=== PATIENT | male | born 1965 | race Caucasian/White ===

== ENCOUNTER 2020-04-29 12:02 | Emergency (ER) | payer SELFPAY ==
[~2020-04-29] VITALS: Ht 188 cm; Wt 84.4 kg
--- NOTE | 2020-04-29 12:02 | NUR ---
PT BIB SELF C/O SI "I WANT TO CUT MY WRIST" PT IS AAOX4, NOT IN RESPIRATORY DISTRESS, V/S STABLE, KEPT RESTED AND COMFORTABLE. SITTER AT BEDSIDE. WILL CONTINUE TO MONITOR.
--- NOTE | 2020-04-29 12:13 | NUR ---
URINE SPECIMEN COLLECTED AND SENT TO LAB.
--- NOTE | 2020-04-29 12:16 | NUR ---
CALLED SECURITY FOR WANDING.
[2020-04-29 12:33] LABS: APPEARANCE,URINE Clear (CLEAR); BILIRUBIN,URINE Negative (NEGATIVE); BLOOD, URINE Negative Ery/uL (NEGATIVE); COLOR,URINE Yellow (YELLOW); KETONES,URINE Negative (NEGATIVE); LEUKOCYTE ESTERASE ,URINE Negative (NEGATIVE); NITRITE, URINE Negative (NEGATIVE); PROTEIN,URINE 30 mg/dl (NEGATIVE); UGLUCOSE Negative (NEGATIVE)
[2020-04-29 12:35] LABS: BASOPHILS # (AUTO) 0.1 /CMM (0.0-0.2); BASOPHILS % (AUTO) 0.9 % (0.0-2.0); EOSINOPHILS % (AUTO) 4.6 % (0.0-6.0); HEMATOCRIT 44 % (39-51); HEMOGLOBIN 14.8 g/dL (13.5-17.5); LYMPHOCYTES # (AUTO) 1.9 /CMM (0.8-4.8); LYMPHOCYTES % (AUTO) 32.6 % (20.0-44.0); MEAN CORPUSCULAR HGB CONC 34 g/dl (31.0-36.0); MEAN CORPUSCULAR VOLUME 100 fL (80-96); MONOCYTES # (AUTO) 0.6 /CMM (0.1-1.30); MONOCYTES % (AUTO) 10.2 % (2.0-12.0); NEUTROPHILS % (AUTO) 51.7 % (43.0-81.0); PLATELET COUNT (AUTO) 311 /CMM (150-450); WHITE BLOOD COUNT (AUTO) 5.7 K/uL (4.3-11.0)
[2020-04-29] MEDS ORDERED: LORAZEPAM 1 MG TABLET ONE (12:37)
[2020-04-29 12:40] LABS: CREATININE 1.1 mg/dL (0.6-1.3); POTASSIUM 3.5 mmol/L (3.5-5.1)
[2020-04-29 12:48] LABS: ALBUMIN 3.6 g/dL (3.4-5.0); BILIRUBIN,DIRECT 0.1 mg/dL (0.0-0.2); BILIRUBIN,TOTAL 0.4 mg/dL (0.2-1.0); TOTAL PROTEIN, SERUM 7.7 g/dL (6.4-8.2)
[2020-04-29 12:49] LABS: SALICYLATE 1.2 mg/dL (2.8-20.0)
[2020-04-29] MEDS ORDERED: LORAZEPAM 1 MG TABLET PO ONE (13:00)
--- NOTE | 2020-04-29 13:30 | NUR ---
Patient given written and verbal discharge instructions. Patient verbalizes understanding of instructions. Patient is ambulatory with steady gait. Refuses offer of penitentiary placement. Patient given list of available shelters in surrounding area.
[2020-04-29 13:31] VITALS: BP 126/81
== END 2020-04-29 13:32 | disposition home or self-care (01) ==
LOC: ER 12:02
DX: F41.9 Anxiety disorder, unspecified (principal); F32.9 Major depressive disorder, single episode, unspecified; F20.9 Schizophrenia, unspecified; F29 Unspecified psychosis not due to a substance or known physiological condition
CPT/HCPCS: 36415; 80048; 80076; 80305; 80307; 80329; 81001; 85025; 99283; G0480; 81000-TC

== ENCOUNTER 2020-04-29 23:20 | Emergency (ER) | payer SELFPAY ==
[~2020-04-29] VITALS: Ht 188 cm; Wt 84.4 kg
--- NOTE | 2020-04-29 23:34 | NUR ---
PT [id number] FROM [facility] PER RA, INGESTED ABOUT 15 PILLS LORAZEPAM 2MG. PT ENDORSES SI W/ A PLAN TO OVERDOSE ON PILLS. PT DENIES HI. PT AAOX4, VSS, RESPIRATIONS EVEN AND UNLABORED ON RA W/ NAD NOTED. PT CONNECTED TO THE MONITOR AND POX, CHANGED INTO GOWN BELONGINGS PLACED TO LOCKER. SUICIDE PRECAUTIONS IMPLEMENTED. SITTER AT BEDSIDE FOR SAFETY
--- NOTE | 2020-04-29 23:43 | NUR ---
EKG AT BEDSIDE
--- NOTE | 2020-04-29 23:48 | NUR ---
BUTTON RIVETER AT BEDSIDE
[2020-04-29 23:58] LABS: BASOPHILS # (AUTO) 0.1 /CMM (0.0-0.2); BASOPHILS % (AUTO) 1.4 % (0.0-2.0); EOSINOPHILS % (AUTO) 4.7 % (0.0-6.0); HEMATOCRIT 44 % (39-51); HEMOGLOBIN 14.9 g/dL (13.5-17.5); LYMPHOCYTES # (AUTO) 1.5 /CMM (0.8-4.8); LYMPHOCYTES % (AUTO) 27.8 % (20.0-44.0); MEAN CORPUSCULAR HGB CONC 34 g/dl (31.0-36.0); MEAN CORPUSCULAR VOLUME 99 fL (80-96); MONOCYTES # (AUTO) 0.5 /CMM (0.1-1.30); MONOCYTES % (AUTO) 9.9 % (2.0-12.0); NEUTROPHILS % (AUTO) 56.2 % (43.0-81.0); PLATELET COUNT (AUTO) 312 /CMM (150-450); RED BLOOD CELL COUNT(AUTO) 4.45 MIL/uL (4.5-6.0); WHITE BLOOD COUNT (AUTO) 5.4 K/uL (4.3-11.0)
[2020-04-30 00:13] LABS: CALCIUM, SERUM 8.1 mg/dL (8.5-10.1); CREATININE 1.1 mg/dL (0.6-1.3); POTASSIUM 3.4 mmol/L (3.5-5.1)
[2020-04-30] MEDS ORDERED: ONDANSETRON 4 MG TAB.RAPDIS ONE (00:28)
[2020-04-30] MEDS ORDERED: ONDANSETRON 4 MG TAB.RAPDIS SL ONE (00:30)
[2020-04-30 00:34] LABS: ALBUMIN 3.7 g/dL (3.4-5.0); BILIRUBIN,DIRECT 0.2 mg/dL (0.0-0.2); BILIRUBIN,TOTAL 0.5 mg/dL (0.2-1.0); TOTAL PROTEIN, SERUM 7.5 g/dL (6.4-8.2)
[2020-04-30 00:57] LABS: APPEARANCE,URINE CLEAR (CLEAR); BILIRUBIN,URINE NEGATIVE (NEGATIVE); BLOOD, URINE NEGATIVE Ery/uL (NEGATIVE); COLOR,URINE YELLOW (YELLOW); KETONES,URINE NEGATIVE (NEGATIVE); LEUKOCYTE ESTERASE ,URINE NEGATIVE (NEGATIVE); NITRITE, URINE NEGATIVE (NEGATIVE); PROTEIN,URINE TRACE mg/dl (NEGATIVE); UGLUCOSE NEGATIVE (NEGATIVE); UROBILINOGEN,URINE 0.2 EU/dL (0.2)
[2020-04-30 01:11] LABS: SALICYLATE 0.6 mg/dL (2.8-20.0)
[2020-04-30 01:18] LABS: BACTERIA,URINE None seen /HPF (None Seen); RBC,URINE 0-2 /HPF (0-2); SQUAMOUS EPITHELIAL CELL,UR Few /HPF (None Seen); WBC,URINE 0-2 /HPF (0-3)
--- NOTE | 2020-04-30 06:00 | NUR ---
BALDEMAR CRISIS TEAM MEDICAL ORDERLY AT BEDSIDE
--- NOTE | 2020-04-30 06:56 | NUR ---
Pt denies SI/HI. Patient discharged to home in stable condition. Written and verbal after care instructions given. Patient verbalizes understanding of instruction.
[2020-04-30 06:58] VITALS: BP 141/78
== END 2020-04-30 06:58 | disposition home or self-care (01) ==
LOC: ER 23:21
DX: T42.4X2A Poisoning by benzodiazepines, intentional self-harm, initial encounter (principal); R45.851 Suicidal ideations; F32.9 Major depressive disorder, single episode, unspecified; F20.9 Schizophrenia, unspecified; F41.9 Anxiety disorder, unspecified; R94.31 Abnormal electrocardiogram [ECG] [EKG]; Y92.89 Other specified places as the place of occurrence of the external cause
CPT/HCPCS: 36415; 80048; 80076; 80305; 80307; 80329; 81001; 82962; 85025; 93005; 99285; G0480; Q0162; 81000-TC

== ENCOUNTER 2020-05-30 16:17 | Emergency (ER) | payer MEDICAID ==
[~2020-05-30] VITALS: Ht 188 cm; Wt 85.3 kg
--- NOTE | 2020-05-30 16:20 | NUR ---
BIBRA 39 FOR NON RADIATING MIDSTERNAL CHEST PAIN STARTED AROUND 3PM TODAY. AA/OX4, BREATHING EVEN AND UNLABORED, NO SOB NOTED. ATTACHED TO THE [employer]OUSSEAU CONSULTANT.
[2020-05-30] MEDS ORDERED: PANTOPRAZOLE 40 MG VIAL IV ONE (16:30)
[2020-05-30] MEDS ORDERED: PANTOPRAZOLE 40 MG VIAL ONE (16:36)
--- NOTE | 2020-05-30 16:41 | NUR ---
IV LINE ESTABLISHED AND BLOOD DRAWN, GIVEN TO LAB. URINE SAMPLE SENT TO LAB.
[2020-05-30 16:44] LABS: BASOPHILS % (AUTO) 0.4 % (0.0-2.0); HEMATOCRIT 44 % (39-51); LYMPHOCYTES # (AUTO) 1.2 /CMM (0.8-4.8); LYMPHOCYTES % (AUTO) 25.2 % (20.0-44.0); MEAN CORPUSCULAR HGB CONC 34 g/dl (31.0-36.0); MEAN CORPUSCULAR VOLUME 102 fL (80-96); MONOCYTES # (AUTO) 0.5 /CMM (0.1-1.30); MONOCYTES % (AUTO) 9.7 % (2.0-12.0); NEUTROPHILS % (AUTO) 62.7 % (43.0-81.0); PLATELET COUNT (AUTO) 219 /CMM (150-450); RED BLOOD CELL COUNT(AUTO) 4.36 MIL/uL (4.5-6.0); WHITE BLOOD COUNT (AUTO) 4.7 K/uL (4.3-11.0)
[2020-05-30 16:54] LABS: CALCIUM, SERUM 8.6 mg/dL (8.5-10.1); CARBON DIOXIDE 26 mmol/L (21-32); CHLORIDE 102 mmol/L (98-107); CREATININE 0.9 mg/dL (0.6-1.3); GLUCOSE 80 mg/dL (74-106); SODIUM SERUM 141 mmol/L (136-145); UREA NITROGEN, BLOOD 7 mg/dL (7-18)
[2020-05-30 17:00] LABS: ACETAMINOPHEN < 2 ug/ml (10-30); ALCOHOL, BLOOD 435 mg/dL (0-0); SALICYLATE < 2.8 mg/dL (2.8-20.0)
--- NOTE | 2020-05-30 17:25 | NUR ---
patient stated chest pain has improved, and wants to leave ama. Informed Dr. Churchill and spoke to the patient.
--- NOTE | 2020-05-30 17:34 | NUR ---
IV removed. Catheter intact and site benign. Pressure and 4x4 applied to site. No bleeding noted.Patient does not wish to proceed with medical care recommended by Dr. Churchill. Patient given information related to possible complications, up to and including , which could occur as a result of leaving the hospital at this time. Patient verbalizes understanding of risks involved due to leaving against medical advice. Patient has signed AMA form.
[2020-05-30 17:39] VITALS: BP 124/86
== END 2020-05-30 17:39 | disposition left against medical advice (07) ==
LOC: ER 16:23
DX: R07.89 Other chest pain (principal); F15.10 Other stimulant abuse, uncomplicated; F10.10 Alcohol abuse, uncomplicated; R94.31 Abnormal electrocardiogram [ECG] [EKG]; Y90.8 Blood alcohol level of 240 mg/100 ml or more; Z98.890 Other specified postprocedural states
CPT/HCPCS: 36415; 71045; 80048; 80305; 80307; 80329; 84484; 85025; 85378; 93005 ×2; 96374; 99285; C9113; G0480

== ENCOUNTER 2021-05-23 15:13 | Emergency (ER) | payer MEDICAID ==
[~2021-05-23] VITALS: Ht 188 cm; Wt 81.6 kg
--- NOTE | 2021-05-23 15:30 | NUR ---
PRESSURE LIKE CHEST PAIN STARTED 45 MINS FLASK HANDLER. STATES "IM WIDRAWING FROM ALCOHOL WELL." PATIENT A/OX4, BREATHING EVEN AND UNLABORED, NO SOB NOTED, NEEDS ATTENDED. KEPT COMFORTABLE.
[2021-05-23] MEDS ORDERED: ONDANSETRON HCL/PF 4 MG/2 ML VIAL IVP ONE (16:00)
[2021-05-23] MEDS ORDERED: ACETAMINOPHEN 325 MG TABLET PO ONE (16:00)
[2021-05-23] MEDS ORDERED: LORAZEPAM 1 MG TABLET PO ONE (16:00)
[2021-05-23] MEDS ORDERED: LORAZEPAM 1 MG TABLET ONE (16:54)
[2021-05-23] MEDS ORDERED: ACETAMINOPHEN 325 MG TABLET ONE (16:54)
[2021-05-23] MEDS ORDERED: ONDANSETRON 4 MG TAB.RAPDIS ONE (16:54)
[2021-05-23] MEDS ORDERED: CHLO25CA22 PO (16:55)
--- NOTE | 2021-05-23 17:08 | NUR ---
PATIENT APPEARS TO BE COMFORTABLE AT THIS TIME. NEEDS ATTENDED.
[2021-05-23 17:38] VITALS: BP 143/79
--- NOTE | 2021-05-23 17:38 | NUR ---
PATIENT A/OX4, AMBULATORY WITH STEADY GAIT. NEEDS ATTENDED. Patient discharged to home in stable condition. Written and verbal after care instructions given. Patient verbalizes understanding of instruction.
== END 2021-05-23 17:38 | disposition home or self-care (01) ==
LOC: ER 15:17
DX: F10.10 Alcohol abuse, uncomplicated (principal); R07.89 Other chest pain; F32.9 Major depressive disorder, single episode, unspecified; F41.9 Anxiety disorder, unspecified; F20.9 Schizophrenia, unspecified; Z79.899 Other long term (current) drug therapy; Y90.9 Presence of alcohol in blood, level not specified
CPT/HCPCS: 93005 ×2; 99284; Q0162